=== PATIENT | female | born 1935 | race Caucasian/White ===

== ENCOUNTER 2017-01-22 06:30 | Observation (INO) | payer MEDICARE ==
[~2017-01-22] VITALS: Ht 166.4 cm; Wt 106.2 kg
[2017-01-22] VITALS (12 sets, daily range): BP systolic 133–181; BP diastolic 69–107; PULSE 84–109; RESP 18–24; TEMP 97.4–98.3; O2SAT 94–100
[~2017-01-22 06:30] MED LIST: ASPI81 PO; ENAL20TA81 PO; FISH1000 PO; FURO1TAB93 PO
[2017-01-22] MEDS ORDERED: ASPIRIN 81 MG CHEW TAB PO ONE (07:00)
[2017-01-22] MEDS ORDERED: SODIUM CHLORIDE 0.9% FLUSH 10 ML FLUSH IVF PRN (07:00)
[2017-01-22] MEDS ORDERED: MORPHINE SULFATE 4 MG/ML INJ IV PUSH ONE (07:00)
--- NOTE | 2017-01-22 07:09 | PD ---
HPI Chief Complaint: Chest Pain Time Seen by Provider: 06:52 Travel History International Travel<30 days: No Contact w/Intl Traveler<30days: No Traveled to known affect area: No History of Present Illness HPI Patient is a 81-year-old female here with complaint of chest pain. Patient states that she woke up at approximately 2 AM with complaint of left-sided inframammary chest pain that wraps around slightly to the left flank. She states that this is an achy pain, mild to moderate. She has not noticed anything that makes it better or worse. Some nausea and 2 episodes of emesis. Loose stool but no jacque diarrhea. No abdominal pain. Patient denies any associated shortness of breath. She denies a history of cardiac disease, and to her knowledge has never previously had any provocative testing. [facility] Past Medical History Arthritis: Yes Blood Disorders: No Cancer: No Cardiovascular Problems: Yes Cerebrovascular Accident: Yes (TIA) Endocrine: No GERD: Yes Genitourinary: No Hypertension: Yes Immune Disorder: No Musculoskeletal: Yes Neurologic: No Psychiatric: No Respiratory: No Past Surgical History Section: Yes Eye Surgery: Yes (CATARACT SX BOTH EYES) Gynecologic Surgery: Yes (C SECTION) Social History Alcohol Use: Yes (WINE 2 GLASSES DAILY) Tobacco Use: No Allergies-Medications (Allergen,Severity, Reaction): Coded Allergies: Tramadol (Verified Allergy, Severe, Hives, 01/22/17) Reported Meds & Prescriptions Reported Meds & Active Scripts Active Reported Fish Oil 1,000 Mg Cap 1,000 Mg PO DAILY Aspirin 81 Mg Tab 81 Mg PO DAILY Lasix (Furosemide) 40 Mg Tab 40 Mg PO DAILY Vasotec (Enalapril Maleate) 20 Mg Tab 40 Mg PO DAILY Review of Systems Except as stated in HPI: all other systems reviewed are Neg Physical Exam Narrative GENERAL: Obese elderly female in no acute distress SKIN: Focused skin assessment warm/dry. HEAD: Normocephalic. EYES: No scleral icterus. No injection or drainage. ENT: Mucous membranes pink and moist. NECK: Supple CARDIOVASCULAR: Regular rate and rhythm. No murmur appreciated. No reproducible tenderness to palpation of the chest wall RESPIRATORY: No accessory muscle use. Clear to auscultation. Breath sounds equal bilaterally. GASTROINTESTINAL: Abdomen soft, non-tender, nondistended. Obese MUSCULOSKELETAL: No obvious deformities. No edema. NEUROLOGICAL: Awake and alert. Motor grossly within normal limits. Normal speech. PSYCHIATRIC: Appropriate mood and affect; insight and judgment normal. Data Data Last Documented VS Vital Signs Date Time Temp Pulse Resp B/P Pulse Ox O2 Delivery O2 Flow Rate FiO2 01/22/17 06:58 Nasal Cannula 2.0 01/22/17 06:58 94 01/22/17 06:33 98.3 84 18 181/107 Orders Electrocardiogram (01/22/17 06:52) Ckmb (Isoenzyme) Profile (01/22/17 06:52) Complete Blood Count With Diff (01/22/17 06:52) Comprehensive Metabolic Panel (01/22/17 06:52) Magnesium (Mg) (01/22/17 06:52) Prothrombin Time / Inr (Pt) (01/22/17 06:52) Act Partial Throm Time (Ptt) (01/22/17 06:52) Troponin I (01/22/17 06:52) Lipase (01/22/17 06:52) Chest, Single Ap (01/22/17 06:52) Ecg Monitoring (01/22/17 06:52) Bilateral Bp Monitoring (01/22/17 06:52) Iv Access Insert/Monitor (01/22/17 06:52) Oximetry (01/22/17 06:52) Oxygen Administration (01/22/17 06:52) Aspirin Chew (Aspirin Chew) (01/22/17 07:00) Morphine Inj (Morphine Inj) (01/22/17 07:00) Sodium Chloride 0.9% Flush (Ns Flush) (01/22/17 07:00) MDM Medical Decision Making Medical Screen Exam Complete: Yes Emergency Medical Condition: Yes Medical Record Reviewed: Yes Differential Diagnosis 81-year-old female with history of GERD, HTN, TIA here with left-sided inframammary chest pressure 4 hours, nausea and vomiting. Differential includes GERD, gastritis, pancreatitis, hepatobiliary pathology, ACS and less likely PE or dissection Narrative Course Patient placed on monitor, IV established and blood obtained. A twelve-lead EKG shows sinus rhythm without notable ST or T-wave abnormalities and normal intervals. Patient given aspirin, morphine. X-ray of the chest, CBC, CMP, lipase, magnesium, CK-MB, troponin and coags were ordered and are pending at the time this dictation. Patient signed out to oncoming provider waiting results of same for ultimate admission for provocative testing. Cara Escobedo MD Jan 22, 2017 07:09
[2017-01-22] MEDS: NITROGLYCERIN 0.4 MG SL 25 TABS/BTL SL SCH ×3 (07:16→08:13)
--- NOTE | 2017-01-22 07:22 | RADRPT ---
EXAM DATE/TIME: 01/22/2017 06:50 [facility] COMPARISON: No previous studies available for comparison. INDICATIONS : Patient is experiencing left upper chest pain that radiates down her back. MEDICAL HISTORY : None. SURGICAL HISTORY : None. Small cyst was removed from breast 40 years ago. ENCOUNTER: Initial ACUITY: 1 day PAIN SCORE: 8/10 LOCATION: Left upper chest FINDINGS: A single view of the chest demonstrates the lungs to be symmetrically aerated without evidence of mas s, infiltrate or effusion. The cardiomediastinal contours are unremarkable. Osseous structures are intact. CONCLUSION: No acute disease. Kurt Feliz MD on January 22, 2017 at 7:20 Board Certified Radiologist. This report was verified electronically.
[2017-01-22] MEDS ORDERED: OMEP10CA PO (07:30)
[2017-01-22] MEDS ORDERED: HYDR-3516 PO (07:30)
[2017-01-22] MEDS ORDERED: TEMA30CA PO (07:30)
[2017-01-22] MEDS ORDERED: CARB1DRO19 (07:30)
[2017-01-22] MEDS ORDERED: FISH1000 (07:30)
[2017-01-22] MEDS ORDERED: SIMV20TA PO (07:30)
[2017-01-22] MEDS ORDERED: [UNRECOGNIZED DRUG - OTHER] (07:30)
[2017-01-22] MEDS ORDERED: LEVO25TA4 PO (07:30)
[2017-01-22] MEDS ORDERED: POTA8TAB PO (07:30)
[2017-01-22] MEDS ORDERED: LISI40TA PO (07:30)
[2017-01-22] MEDS ORDERED: ASPI81CH CHEW (07:30)
[2017-01-22] MEDS ORDERED: GABA100C4 PO (07:30)
[2017-01-22] MEDS ORDERED: PRESERVISION (07:33)
[2017-01-22 07:34] LABS: AUTOMATED NEUTROPHIL # 6.8 TH/MM3 (1.8-7.7); BASOPHIL % 0.3 % (0.0-2.0); EOSINOPHIL # 0.1 TH/MM3 (0-0.4); EOSINOPHIL % 0.7 % (0.0-4.0); HEMATOCRIT 41.5 % (35.0-46.0); HEMO FLAGS DIFF FINAL; LYMPH % 12.8 % (9.0-44.0); MEAN CELL VOLUME 93.1 FL (80.0-100.0); MEAN CORPUSCULAR HEMOGLOBIN 31.4 PG (27.0-34.0); MEAN CORPUSCULAR HGB CONC 33.7 % (32.0-36.0); NEUT % 83.2 % (16.0-70.0); PLATELET COUNT 189 TH/MM3 (150-450); RED BLOOD COUNT 4.45 MIL/MM3 (4.00-5.30); WHITE BLOOD COUNT 8.2 TH/MM3 (4.0-11.0)
[2017-01-22 07:42] LABS: APTT (PATIENT) 29.4 SEC (24.3-30.1); PROTHROMBIN TIME - PATIENT 10.7 SEC (9.8-11.6)
--- NOTE | 2017-01-22 07:51 | PD ---
Physical Exam Date Seen by Provider: Jan 22, 2017 Data Data Last Documented VS Vital Signs Date Time Temp Pulse Resp B/P Pulse Ox O2 Delivery O2 Flow Rate FiO2 01/22/17 09:00 86 21 133/72 100 Nasal Cannula 2 01/22/17 06:33 98.3 Orders Electrocardiogram (01/22/17 06:52) Ckmb (Isoenzyme) Profile (01/22/17 06:52) Complete Blood Count With Diff (01/22/17 06:52) Comprehensive Metabolic Panel (01/22/17 06:52) Magnesium (Mg) (01/22/17 06:52) Prothrombin Time / Inr (Pt) (01/22/17 06:52) Act Partial Throm Time (Ptt) (01/22/17 06:52) Troponin I (01/22/17 06:52) Lipase (01/22/17 06:52) Chest, Single Ap (01/22/17 06:52) Ecg Monitoring (01/22/17 06:52) Bilateral Bp Monitoring (01/22/17 06:52) Iv Access Insert/Monitor (01/22/17 06:52) Oximetry (01/22/17 06:52) Oxygen Administration (01/22/17 06:52) Aspirin Chew (Aspirin Chew) (01/22/17 07:00) Morphine Inj (Morphine Inj) (01/22/17 07:00) Sodium Chloride 0.9% Flush (Ns Flush) (01/22/17 07:00) Nitroglycerin Sl (Nitrostat Sl) (01/22/17 07:15) Ondansetron Inj (Zofran Inj) (01/22/17 08:00) CKMB (01/22/17 06:55) CKMB% (01/22/17 06:55) Cta Thor Abd Aorta W Iv C W3d (01/22/17 08:26) Iohexol 350 Inj (Omnipaque 350 Inj) (01/22/17 09:32) Admit Order (Ed Use Only) (01/22/17 10:25) Labs Laboratory Tests Test 01/22/17 06:55 White Blood Count 8.2 TH/MM3 Red Blood Count 4.45 MIL/MM3 Hemoglobin 14.0 GM/DL Hematocrit 41.5 % Mean Corpuscular Volume 93.1 FL Mean Corpuscular Hemoglobin 31.4 PG Mean Corpuscular Hemoglobin 33.7 % Concent Red Cell Distribution Width 14.0 % Platelet Count 189 TH/MM3 Mean Platelet Volume 7.4 FL Neutrophils (%) (Auto) 83.2 % Lymphocytes (%) (Auto) 12.8 % Monocytes (%) (Auto) 3.0 % Eosinophils (%) (Auto) 0.7 % Basophils (%) (Auto) 0.3 % Neutrophils # (Auto) 6.8 TH/MM3 Lymphocytes # (Auto) 1.0 TH/MM3 Monocytes # (Auto) 0.2 TH/MM3 Eosinophils # (Auto) 0.1 TH/MM3 Basophils # (Auto) 0.0 TH/MM3 CBC Comment DIFF FINAL Differential Comment Prothrombin Time 10.7 SEC Prothromb Time International 1.0 RATIO Ratio Activated Partial 29.4 SEC Thromboplast Time Sodium Level 140 MEQ/L Potassium Level 4.7 MEQ/L Chloride Level 105 MEQ/L Carbon Dioxide Level 27.7 MEQ/L Anion Gap 7 MEQ/L Blood Urea Nitrogen 15 MG/DL Creatinine 0.91 MG/DL Estimat Glomerular Filtration 59 ML/MIN Rate Random Glucose 127 MG/DL Calcium Level 9.2 MG/DL Magnesium Level 2.2 MG/DL Total Bilirubin 0.7 MG/DL Aspartate Amino Transf 47 U/L (AST/SGOT) Alanine Aminotransferase 21 U/L (ALT/SGPT) Alkaline Phosphatase 72 U/L Total Creatine Kinase 157 U/L Creatine Kinase MB 1.6 NG/ML Troponin I LESS THAN 0.02 NG/ML Total Protein 8.0 GM/DL Albumin 3.9 GM/DL Lipase 92 U/L [facility] Medical Record Reviewed: Yes Supervised Visit with DEXTER: No Interpretation(s) Vital Signs Date Time Temp Pulse Resp B/P Pulse Ox O2 Delivery O2 Flow Rate FiO2 01/22/17 07:29 164/83 01/22/17 07:29 24 01/22/17 07:11 87 24 155/81 95 Room Air 152/71 01/22/17 06:58 Nasal Cannula 2.0 01/22/17 06:58 94 Room Air 01/22/17 06:33 98.3 84 18 181/107 95 Room Air Differential Diagnosis Differential includes ACS, arrhythmia, aortic dissection, gastritis, gastroenteritis, PE Narrative Course Patient was signed out to me by Dr. Dunne at change of shift. Patient is an 81-year-old female who presents to emergency room with complaints of chest pain. Patient reports that she woke up around 2 AM with left sided chest pain which radiates to her left flank. Reports that pain feels like a "pressure to her chest", reports that she felt nauseous and felt as if she had acid reflux with her symptoms. Patient did endorse that she did have episode of nausea 2. Patient at this time feels mild pressure to her chest, reports history of hyperlipidemia, hypertension, no history of coronary artery disease. Patient was placed on a cardiac rehabilitation program director upon arrival to emergency room. Patient was given aspirin, labs including cardiac enzymes, EKG obtained. X-ray chest ordered. Nitroglycerin to see if this helps with her chest pain symptoms Laboratory Tests Test 01/22/17 06:55 White Blood Count 8.2 TH/MM3 (4.0-11.0) Red Blood Count 4.45 MIL/MM3 (4.00-5.30) Hemoglobin 14.0 GM/DL (11.6-15.3) Hematocrit 41.5 % (35.0-46.0) Mean Corpuscular Volume 93.1 FL (80.0-100.0) Mean Corpuscular Hemoglobin 31.4 PG (27.0-34.0) Mean Corpuscular Hemoglobin 33.7 % Concent (32.0-36.0) Red Cell Distribution Width 14.0 % (11.6-17.2) Platelet Count 189 TH/MM3 (150-450) Mean Platelet Volume 7.4 FL (7.0-11.0) Neutrophils (%) (Auto) 83.2 % (16.0-70.0) Lymphocytes (%) (Auto) 12.8 % (9.0-44.0) Monocytes (%) (Auto) 3.0 % (0.0-8.0) Eosinophils (%) (Auto) 0.7 % (0.0-4.0) Basophils (%) (Auto) 0.3 % (0.0-2.0) Neutrophils # (Auto) 6.8 TH/MM3 (1.8-7.7) Lymphocytes # (Auto) 1.0 TH/MM3 (1.0-4.8) Monocytes # (Auto) 0.2 TH/MM3 (0-0.9) Eosinophils # (Auto) 0.1 TH/MM3 (0-0.4) Basophils # (Auto) 0.0 TH/MM3 (0-0.2) CBC Comment DIFF FINAL Differential Comment Prothrombin Time 10.7 SEC (9.8-11.6) Prothromb Time International 1.0 RATIO Ratio Activated Partial 29.4 SEC Thromboplast Time (24.3-30.1) Sodium Level 140 MEQ/L (136-145) Potassium Level 4.7 MEQ/L (3.5-5.1) Chloride Level 105 MEQ/L (98-107) Carbon Dioxide Level 27.7 MEQ/L (21.0-32.0) Anion Gap 7 MEQ/L (5-15) Blood Urea Nitrogen 15 MG/DL (7-18) Creatinine 0.91 MG/DL (0.50-1.00) Estimat Glomerular Filtration 59 ML/MIN (>89) Rate Random Glucose 127 MG/DL (74-106) Calcium Level 9.2 MG/DL (8.5-10.1) Magnesium Level 2.2 MG/DL (1.5-2.5) Total Bilirubin 0.7 MG/DL (0.2-1.0) Aspartate Amino Transf 47 U/L (15-37) (AST/SGOT) Alanine Aminotransferase 21 U/L (10-53) (ALT/SGPT) Alkaline Phosphatase 72 U/L (45-117) Total Creatine Kinase 157 U/L (26-192) Creatine Kinase MB 1.6 NG/ML (0.5-3.6) Troponin I LESS THAN 0.02 NG/ML (0.02-0.05) Total Protein 8.0 GM/DL (6.4-8.2) Albumin 3.9 GM/DL (3.4-5.0) Lipase 92 U/L (73-393) Last Impressions Aorta CTA 01/22/17 3522 Signed Impressions: Service Date/Time: Sunday, January 22, 2017 09:25 - CONCLUSION: 1. Unremarkable thoracic and abdominal aorta without evidence of aneurysmal enlargement, intimal dissection or ulcerated atherosclerotic plaque. 2. 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 3. Bilateral patchy airspace disease 4. Cholelithiasis 5. No evidence of acute process in the abdomen or pelvis. Kurt Feliz MD Chest X-Ray 01/22/17 2721 Signed Impressions: Service Date/Time: Sunday, January 22, 2017 06:50 - CONCLUSION: No acute disease. Kurt Feliz MD Patient with relief of symptoms after 3 sublingual nitros. Plan to observe in the chest pain unit Diagnosis Primary Impression: Chest pain Admitting Information Admitting Physician Requests: Observation Nayana Aparicio DO Jan 22, 2017 07:51
[2017-01-22] MEDS ORDERED: ONDANSETRON HCL 4 MG/2 ML VIAL IV PUSH ONE (08:00)
[2017-01-22 08:05] LABS: ALT (GPT) 21 U/L (10-53)
[2017-01-22 08:20] LABS: ALKALINE PHOSPHATASE 72 U/L (45-117); ANION GAP 7 MEQ/L (5-15); AST (GOT) 47 U/L (15-37); BICARBONATE 27.7 MEQ/L (21.0-32.0); BLOOD UREA NITROGEN 15 MG/DL (7-18); CHLORIDE 105 MEQ/L (98-107); CREATINE KINASE 157 U/L (26-192); GLOMERULAR FILTRATION RATE 59 ML/MIN (>89); MAGNESIUM 2.2 MG/DL (1.5-2.5); POTASSIUM 4.7 MEQ/L (3.5-5.1); SODIUM (NA) 140 MEQ/L (136-145); TOTAL BILIRUBIN ADULT 0.7 MG/DL (0.2-1.0)
[2017-01-22 08:34] LABS: CKMB 1.6 NG/ML (0.5-3.6)
[2017-01-22] MEDS ORDERED: IOHEXOL 350 MG/ML 10 ML VIAL (for RAD DIAG) IV ONE (09:32)
--- NOTE | 2017-01-22 10:21 | RADRPT ---
EXAM DATE/TIME: 01/22/2017 09:25 [facility] COMPARISON: No previous studies available for comparison. INDICATIONS : Chest and back pain. IV CONTRAST: 97 cc Omnipaque 350 (iohexol) IV RADIATION DOSE: 17.07 CTDIvol (mGy) MEDICAL HISTORY : Cardiovascular disease. Hypertension. SURGICAL HISTORY : None. ENCOUNTER: Initial ACUITY: 1 day PAIN SCALE: 5/10 LOCATION: Bilateral back TECHNIQUE: Volumetric scanning was performed using a multi-row detector CT scanner. The data was post processed with a variety of visualization algorithms including full volume maximum intensity projection, multi -planar sliding thin slab reformation, curved planar reformation, and surface rendering techniques. Using automated exposure control and adjustment of the mA and/or kV according to patient size, radiat ion dose was kept as low as reasonably achievable to obtain optimal diagnostic quality images. DICOM format image data is available electronically for review and comparison. FINDINGS: LUNGS: Patchy airspace disease is seen in both lungs. There is no pneumothorax. No concerning pulmonary nod ule is visualized. No pleural fluid is present. MEDIASTINUM: No abnormally enlarged lymph nodes by CT criteria. No axillary or hilar abnormalities are identified. ABDOMEN: The liver and spleen are free of focal defects. Calcified stones are noted in the gallbladder. The pa ncreas demonstrates no abnormality. The adrenal glands are normal. The kidneys demonstrate no evidenc e of solid renal mass or hydronephrosis. No free fluid or abdominal masses are identified. No para-ao rtic adenopathy is seen. PELVIS: No evidence of free fluid or pelvic mass. No abnormally enlarged inguinal or retroperitoneal lymph no osmin are present. The bladder is unremarkable. THORACIC AORTA: The thoracic aortic root is normal with normal branching of the great vessels. There is no evidence of aneurysm or dissection. ABDOMINAL AORTA: The aorta is normal in caliber without aneurysm or dissection. The renal arteries are patent bilater ally. The proximal celiac and superior mesenteric arteries are patent and normal in diameter. A calc ified splenic artery aneurysm measuring 2.2 x 1.8 cm in size is noted. PELVIC VESSELS: The internal iliac and external iliac vessels are patent without aneurysm or stenosis. CONCLUSION: 1. Unremarkable thoracic and abdominal aorta without evidence of aneurysmal enlargement, intimal diss ection or ulcerated atherosclerotic plaque. 2. 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 3. Bilateral patchy airspace disease 4. Cholelithiasis 5. No evidence of acute process in the abdomen or pelvis. Kurt Feliz MD on January 22, 2017 at 10:13 Board Certified Radiologist. This report was verified electronically.
[2017-01-22] MEDS ORDERED: FAMOTIDINE 20 MG/2 ML VIAL IV PUSH ONE (10:30)
[2017-01-22] MEDS ORDERED: ONDANSETRON HCL 4 MG/2 ML VIAL IV PRN (11:45)
[2017-01-22] MEDS ORDERED: NITROGLYCERIN 0.4 MG SL 25 TABS/BTL SL PRN (11:45)
[2017-01-22] MEDS ORDERED: ACETAMINOPHEN 500 MG CPLT PO PRN (11:45)
--- NOTE | 2017-01-22 12:43 | EKG ---
Date Performed: 01/22/2017 Time Performed: 06:41:36 PTAGE: 81 years EKG: Sinus rhythm WITH OCCASIONAL SUPRAVENTRICULAR PREMATURE COMPLEXES Compared to prior tracing no significant change BORDERLINE ECG PREVIOUS TRACING : 08/16/2008 08.57 DOCTOR: John Hudson Interpretating Date/Time 01/22/2017 12:40:52
--- NOTE | 2017-01-22 12:54 | HHI.HP ---
[facility] Primary Care Physician Juanpablo Bolanos MD Chief Complaint Chest pain, nausea, vomiting History of Present Illness 81-year-old female with history of hypertension, GERD, arthritis presents to emergency room for further evaluation of chest pain, nausea, and vomiting. Reports all last evening she didn't feel well and was nauseated she proceeded to go to sleep. At 2 AM she woke feeling extremely nauseated and felt that if she vomited she would feel much better. She eventually vomited 3 undigested food, denying any blood. Also have 56 loose stools, not watery with no blood and not dark in color. During this time she also had left inframammary chest pain radiating to her back. Pain described as severe soreness. Associated symptoms included dizziness. Duration constant,stating "I'm starting to feel much better." Denied shortness of breath or diaphoresis. Reports similar episodes including chest pain in the past she relates episodes to be GERD related. States generally when episodes occur after vomiting she quickly feels better. This episode she continued to have chest pain for hours after vomiting therefore came to the ER for further evaluation. No known precipitating factors. No known relieving factors for chest pain, relieving factors for nausea with medication provided the ER. Currently denies nausea. Current chest discomfort mild described as "sore." Review of Systems General: No fatigue,weakness, fever, chills, or recent illness. Reports has been her general state of health. States she is basically healthy other than arthritis and being overweight. HEENT: Current headache after receiving nitroglycerin. Denying any chronic headaches or migraines. 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 She no longer can read a book due to vision changes and is quite upset regarding this. Occasional dysphasia for years related to taking pills. Takes her pills with applesauce. CV: As stated above. No palpitations, intermittent leg pain, or dizziness. RESP: No SOB, cough, wheeze, or recent URI. States she rarely gets any upper respiratory infection. No history of asthma. GI: Nausea improving. Loose stools have subsided. Reported intermittent left lower quadrant discomfort during episode as described above. No current abdominal pain, or distention. Follows with a GI specialist. Last colonoscopy 3 years ago-small polyps found. No unintentional weight gain or weight loss : No dysuria, urgency, or frequency EXT: Bilateral neuropathy beginning and ankles to bottoms of feet. Chronic lower leg edema takes Lasix daily as prescribed. MS: No discomfort or change in ROM. Difficulty with balance related to severe neuropathy. Uses either a cane or walker for ambulation. Endorses 4 falls in the last year. Lives with her son. NEURO: No change in memory or LOC. 30 years ago had a TIA reported to her by her physician after a CT scan completed. PSYCH: Current depression and situational stress. Situational stress around family and financial issues. 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 No anxiety or suicidal ideation SKIN: No rashes, no concerning lesions Past Family Social History Allergies: Coded Allergies: Tramadol (Verified Allergy, Severe, Hives, 01/22/17) Past Medical History Arthritis, neuropathy, GERD, hypertension, macular degeneration left eye, hyperlipidemia Past Surgical History Bilateral cataract, right knee replacement, left hammertoe repair Reported Medications Active Reported [Preservision ] Lubricant Eye Drops (Carboxymethylcellulose Sodium) 1 Each Droperette Fish Oil ([place]-3 Fatty Acids) 1,000 Mg Cap [Sheila Craves ] Aspirin 81 Mg Chew 81 Mg CHEW DAILY Hydrocodone-Acetaminophen 5-325 mg Tab 1 Tab PO Q4H PRN Levothyroxine (Levothyroxine Sodium) 25 Mcg Tab 25 Mcg PO DAILY Omeprazole 10 Mg Cap 10 Mg PO DAILY Temazepam 30 Mg Cap 30 Mg PO HS PRN Simvastatin 20 Mg Tab 20 Mg PO DAILY Potassium Chloride ER (Potassium Chloride) 8 Meq Tab 8 Meq PO DAILY Lisinopril 40 Mg Tab 40 Mg PO DAILY Gabapentin 100 Mg Cap 100 Mg PO TID Active Ordered Medications Current Medications Medications (Trade) Dose Ordered Sig/Parris Route Start Time Stop Time Status Last Admin (NS Flush) 2 ml UNSCH PRN IVF 01/22/17 07:00 01/22/17 08:14 (NS Flush) 2 ml BID IV FLUSH 01/22/17 21:00 (Tylenol) 500 mg Q4H PRN PO 01/22/17 11:45 (Zofran Inj) 4 mg Q6H PRN IV 01/22/17 11:45 (Nitrostat Sl) 0.4 mg Q5M PRN SL 01/22/17 11:45 (Aspirin) 325 mg DAILY PO 01/23/17 09:00 Family History Noncontributory for early onset cardiovascular disease. Social History Known hypertension and hyperlipidemia. No known diabetes or personal coronary artery disease. Quit smoking at age 29. Endorses one glass of wine or one bottle of beer nightly. Denies any recreational drug use. Performs water aerobics 3 times weekly. Past cardiac testing No recent cardiac testing. 20 years ago had exercise stress test and Holter monitor, both unremarkable. Cannot remember why testing was completed at that time. Physical Exam Vital Signs Vital Signs Date Time Temp Pulse Resp B/P Pulse Ox O2 Delivery O2 Flow Rate FiO2 01/22/17 09:00 86 21 133/72 100 Nasal Cannula 2 01/22/17 08:50 94 20 133/69 97 Nasal Cannula 2 01/22/17 08:10 104 20 145/79 97 Nasal Cannula 2 01/22/17 08:05 24 01/22/17 07:50 101 18 145/79 96 Nasal Cannula 2 01/22/17 07:40 109 18 151/77 97 Nasal Cannula 2 01/22/17 07:30 107 20 156/82 97 Nasal Cannula 2 01/22/17 07:29 164/83 01/22/17 07:11 87 24 155/81 95 Room Air 152/71 01/22/17 06:58 Nasal Cannula 2.0 01/22/17 06:58 94 Room Air 01/22/17 06:33 98.3 84 18 181/107 95 Room Air Physical Exam GENERAL: Alert WN, WD, NAD, pleasant, obese female HEAD: NC, AT EYES: Sclera clear, conjunctiva without injection, pupils equal and round ENT: Mucous membranes pink and moist CV: RRR, without murmur, rub, gallop, no JVD, S1-S2 no S3-S4. No carotid bruits. RESP: Clear lungs throughout bilateral, no crackles, wheeze, rhonchi, symmetrical chest rise, nonlabored, able to speak in full sentences ABD: Soft, NT, ND, no masses, positive bowel tones, obese BACK: No scoliosis EXT: Pulses +24, +1 pitting dependent edema bilateral knees to ankles. MS: Normal tone 4 extremities, nontender, no obvious deformities, full range of motion, left inframammary pain reproducible with palpation NEURO: CN II through CN XII grossly intact, motor strength 5/5, gait WNL PSYCH: A+O 3, pleasant affect, appropriate speech, appropriate mood and affect , insight and judgment SKIN: Normal turgor, normal texture, no lesions, no rashes, brisk cap refill Laboratory Laboratory Tests Test 01/22/17 06:55 White Blood Count 8.2 Red Blood Count 4.45 Hemoglobin 14.0 Hematocrit 41.5 Mean Corpuscular Volume 93.1 Mean Corpuscular Hemoglobin 31.4 Mean Corpuscular Hemoglobin 33.7 Concent Red Cell Distribution Width 14.0 Platelet Count 189 Mean Platelet Volume 7.4 Neutrophils (%) (Auto) 83.2 Lymphocytes (%) (Auto) 12.8 Monocytes (%) (Auto) 3.0 Eosinophils (%) (Auto) 0.7 Basophils (%) (Auto) 0.3 Neutrophils # (Auto) 6.8 Lymphocytes # (Auto) 1.0 Monocytes # (Auto) 0.2 Eosinophils # (Auto) 0.1 Basophils # (Auto) 0.0 CBC Comment DIFF FINAL Differential Comment Prothrombin Time 10.7 Prothromb Time International 1.0 Ratio Activated Partial 29.4 Thromboplast Time Sodium Level 140 Potassium Level 4.7 Chloride Level 105 Carbon Dioxide Level 27.7 Anion Gap 7 Blood Urea Nitrogen 15 Creatinine 0.91 Estimat Glomerular Filtration 59 Rate Random Glucose 127 Calcium Level 9.2 Magnesium Level 2.2 Total Bilirubin 0.7 Aspartate Amino Transf 47 (AST/SGOT) Alanine Aminotransferase 21 (ALT/SGPT) Alkaline Phosphatase 72 Total Creatine Kinase 157 Creatine Kinase MB 1.6 Troponin I LESS THAN 0.02 Total Protein 8.0 Albumin 3.9 Lipase 92 Result Diagram: 01/22/1765401/22/17654 Imaging Last Impressions Aorta CTA 01/22/17 0826 Signed Impressions: Service Date/Time: Sunday, January 22, 2017 09:25 - CONCLUSION: 1. Unremarkable thoracic and abdominal aorta without evidence of aneurysmal enlargement, intimal dissection or ulcerated atherosclerotic plaque. 2. 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 3. Bilateral patchy airspace disease 4. Cholelithiasis 5. No evidence of acute process in the abdomen or pelvis. Kurt Feliz MD Chest X-Ray 01/22/17 0652 Signed Impressions: Service Date/Time: Sunday, January 22, 2017 06:50 - CONCLUSION: No acute disease. Kurt Feliz MD Course EKG Normal sinus rhythm, no ST or T-segment changes Assessment and Plan Assessment and Plan #1 Atypical chest painadmitted to chest pain center. Complete serial EKGs and cardiac enzymes. Seen and evaluated by Dr. Leonard Monroy. No further cardiac testing required, atypical chest pain related to GI. #2 Hypertensioncontinue lisinopril #3 Neuropathycontinue gabapentin #4 Hyperlipidemiacontinue simvastatin #5 GERD-continue omeprazole, follow up with GI specialists. #6 Gastritis-follow up with PCP, notified her gallbladder stones noted in CT Aorta results. Episode may have been related, discuss with PCP for possible further testing if pain returns. All symptoms have improved, plans for discharge this afternoon. Yodit Szymanski Jan 22, 2017 12:54 Yodit Szymanski Jan 22, 2017 12:54
[2017-01-22 13:09] LABS: CREATINE KINASE 80 U/L (26-192)
[2017-01-22] MEDS ORDERED: PANTOPRAZOLE SOD 40 MG DELAYED RELEASE TAB PO ONE (13:30)
[2017-01-22] MEDS ORDERED: LISINOPRIL 20 MG TAB PO SCH (13:30)
[2017-01-22 15:32] LABS: CREATINE KINASE 80 U/L (26-192)
--- NOTE | 2017-01-22 15:33 | HHI.DCPOC ---
Discharge Care Plan Diagnosis: (1) Atypical chest pain (2) GERD (gastroesophageal reflux disease) (3) Cholelithiasis Goals to Promote Your Health * To prevent worsening of your condition and complications * To maintain your health at the optimal level Directions to Meet Your Goals Take your medications as prescribed Follow your dietary instruction Follow activity as directed Keep your appointments as scheduled Take your immunizations and boosters as scheduled If your symptoms worsen call your PCP, if no PCP go to Urgent Care Center or Emergency Room Smoking is Dangerous to Your Health. Avoid second hand smoke Call the 24-hour hour crisis hotline for domestic abuse at Yodit Szymanski Jan 22, 2017 15:33
--- NOTE | 2017-01-22 15:36 | PD.CARD.PN ---
Subjective Subjective Remarks CARDIOLOGY ATTENDING NOTE PT SEEN EXAMINED AND DISCUSSED WITH PSYCHIATRIC AIDE. AGREE WITH HER A&P HPI: 81 YO OBESE BRIGHT LADY AWOKE 2 AM REPORTED. PAIN WAS PREDOMINATELY IN UPPER ABDOMEN BUT RADIATED TO LOW CHEST AND L BACK BELOW SHOULDER BLADE. THE PAIN FELT LIKE SOMETHING WAS STUCK SO SHE TRIED TO VOMIT. NO NAUSEA AT THAT TIME. SUBSEQUENTLY SHE DID VOMIT AND HAD A BM. THE PAIN CONTINUED THROUGH THE NIGHT AND THIS MORNING SHE ASKED HER SON TO BRING HER TO ED BECAUSE SHE WAS FEARFUL IT COULD BE HER HEART. SHE HAS KNOWN GERD AND FOLLOWED BY DR. CALDERA. O: GEN VERY OBESE BUT ALERT HEENT JENNIFER EOMI WITH IOL R/L SOME LOSS OF HEARING AND EDENTULOUS NECK THYROID NODULE BY HX BUT I CAN'T PALPATE NO JVD, M, N OR BRUITS CHEST CLEAR TO AP CV SRS BUT WITH OCCASIONAL PREMATURE BEAT. NO GRM ABD MASSIVELY OBESE, TENDER DIFFUSELY BUT MORE SO IN THE RUQ. GUARDING WITH DEEP INSPIRATION RUQ EXT 2+EDEMA, STASIS AND NEUROPATHY EKG NO SIG CHANGES LAB AST ELEVATED TROPONIN NEG CXR NEG ABD GALLSTONES, CALCIFIED VESSELS A: PROBABLE EPISODE OF CHOLECYSTITIS ALTHOUGH VIRAL GASTROENTERITIS ALSO POSSIBLE CP HAS RO FOR ACS AND CURRENT EPISODE DOES NOT APPEAR TO BE CARDIAC P. DISCH TO HOME WITH FU DR CALDERA TO EVALUATE GB Objective Vital Signs / I&O Vital Signs Date Time Temp Pulse Resp B/P Pulse Ox O2 Delivery O2 Flow Rate FiO2 01/22/17 13:40 97.4 98 18 137/79 99 01/22/17 12:30 99 20 135/78 100 Nasal Cannula 2 01/22/17 09:00 86 21 133/72 100 Nasal Cannula 2 01/22/17 08:50 94 20 133/69 97 Nasal Cannula 2 01/22/17 08:10 104 20 145/79 97 Nasal Cannula 2 01/22/17 08:05 24 01/22/17 07:50 101 18 145/79 96 Nasal Cannula 2 01/22/17 07:40 109 18 151/77 97 Nasal Cannula 2 01/22/17 07:30 107 20 156/82 97 Nasal Cannula 2 01/22/17 07:29 164/83 01/22/17 07:11 87 24 155/81 95 Room Air 152/71 01/22/17 06:58 Nasal Cannula 2.0 01/22/17 06:58 94 Room Air 7/15/17 06:33 98.3 84 18 181/107 95 Room Air Laboratory Laboratory Tests Test 01/22/17 01/22/17 06:55 12:20 White Blood Count 8.2 TH/MM3 Red Blood Count 4.45 MIL/MM3 Hemoglobin 14.0 GM/DL Hematocrit 41.5 % Mean Corpuscular Volume 93.1 FL Mean Corpuscular Hemoglobin 31.4 PG Mean Corpuscular Hemoglobin 33.7 % Concent Red Cell Distribution Width 14.0 % Platelet Count 189 TH/MM3 Mean Platelet Volume 7.4 FL Neutrophils (%) (Auto) 83.2 % Lymphocytes (%) (Auto) 12.8 % Monocytes (%) (Auto) 3.0 % Eosinophils (%) (Auto) 0.7 % Basophils (%) (Auto) 0.3 % Neutrophils # (Auto) 6.8 TH/MM3 Lymphocytes # (Auto) 1.0 TH/MM3 Monocytes # (Auto) 0.2 TH/MM3 Eosinophils # (Auto) 0.1 TH/MM3 Basophils # (Auto) 0.0 TH/MM3 CBC Comment DIFF FINAL Differential Comment Prothrombin Time 10.7 SEC Prothromb Time International 1.0 RATIO Ratio Activated Partial 29.4 SEC Thromboplast Time Sodium Level 140 MEQ/L Potassium Level 4.7 MEQ/L Chloride Level 105 MEQ/L Carbon Dioxide Level 27.7 MEQ/L Anion Gap 7 MEQ/L Blood Urea Nitrogen 15 MG/DL Creatinine 0.91 MG/DL Estimat Glomerular Filtration 59 ML/MIN Rate Random Glucose 127 MG/DL Calcium Level 9.2 MG/DL Magnesium Level 2.2 MG/DL Total Bilirubin 0.7 MG/DL Aspartate Amino Transf 47 U/L (AST/SGOT) Alanine Aminotransferase 21 U/L (ALT/SGPT) Alkaline Phosphatase 72 U/L Total Creatine Kinase 157 U/L 80 U/L Creatine Kinase MB 1.6 NG/ML Troponin I LESS THAN 0.02 LESS THAN 0.02 NG/ML NG/ML Total Protein 8.0 GM/DL Albumin 3.9 GM/DL Lipase 92 U/L Leonard Monroy MD Jan 22, 2017 15:36
[2017-01-22] MEDS ORDERED: GABAPENTIN 100 MG CAP PO SCH (18:00)
[2017-01-22] MEDS ORDERED: SODIUM CHLORIDE 0.9% FLUSH 10 ML FLUSH IV FLUSH SCH (21:00)
[2017-01-23] MEDS ORDERED: LEVOTHYROXINE SODIUM 25 MCG TAB PO SCH (09:00)
[2017-01-23] MEDS ORDERED: ASPIRIN 325 MG TAB PO SCH (09:00)
--- NOTE | 2017-01-23 09:25 | EKG ---
Date Performed: 01/22/2017 Time Performed: 11:56:19 PTAGE: 81 years EKG: Sinus rhythm NORMAL ECG NO SIG CHANGE PREVIOUS TRACING : 01/22/2017 06.41 DOCTOR: Leonard Monroy Interpretating Date/Time 01/23/2017 09:24:40
--- NOTE | 2017-01-23 09:25 | EKG ---
Date Performed: 01/22/2017 Time Performed: 14:54:13 PTAGE: 81 years EKG: Sinus rhythm INFERIOR MYOCARDIAL INFARCTION ABNORMAL ECG NO SIG CHANGE PREVIOUS TRACING : 01/22/2017 11.56 DOCTOR: Leonard Monroy Interpretating Date/Time 01/23/2017 09:24:09
== END 2017-01-22 16:36 | disposition home or self-care (01) ==
LOC: NEPE 06:30 → NEDA 10:26 → NEPFCDU 13:19
PROVIDERS: ADMIT Internal Medicine Interventional Cardiology; ATTEND Internal Medicine Interventional Cardiology
DX: R07.89 Other chest pain (principal); M54.9 Dorsalgia, unspecified; R94.31 Abnormal electrocardiogram [ECG] [EKG]; I72.8 Aneurysm of other specified arteries; R60.0 Localized edema; R13.10 Dysphagia, unspecified; F43.9 Reaction to severe stress, unspecified; F32.9 Major depressive disorder, single episode, unspecified; I10 Essential (primary) hypertension; G62.9 Polyneuropathy, unspecified; E78.5 Hyperlipidemia, unspecified; K21.9 Gastro-esophageal reflux disease without esophagitis; K29.70 Gastritis, unspecified, without bleeding; K80.20 Calculus of gallbladder without cholecystitis without obstruction; H35.30 Unspecified macular degeneration; M19.90 Unspecified osteoarthritis, unspecified site; H91.90 Unspecified hearing loss, unspecified ear; E66.9 Obesity, unspecified; Z86.73 Personal history of transient ischemic attack (TIA), and cerebral infarction without residual deficits; Z79.899 Other long term (current) drug therapy; Z79.82 Long term (current) use of aspirin
CPT/HCPCS: 71010; 71275; 74174; 80053; 82550; 82552; 83690; 83735; 84484; 85025; 85610; 85730; 93005; 96374; 99285; G0378; J2405; Q9967

== ENCOUNTER 2017-03-08 07:53 | Observation (INO) | payer MEDICARE ==
[~2017-03-08] VITALS: Ht 166.4 cm; Wt 107.4 kg
[~2017-03-08 07:53] MED LIST changes: -ASPI81 PO; +ASPI81CH CHEW; +CARB1DRO19 EACH EYE; -ENAL20TA81 PO; -FISH1000 PO; -FURO1TAB93 PO; +LEVO25TA4 PO; +LISI40TA PO; +OMEP10CA PO; +POTA8TAB PO; +PRESERVISION; +SIMV20TA PO; +TEMA30CA PO; +[UNRECOGNIZED DRUG - OTHER]
[2017-03-08] MEDS ORDERED: LACTATED RINGER'S 1000 ML IV PRN (08:15)
[2017-03-08] MEDS ORDERED: POVIDONE IODINE 5% (ANTISEPSIS KIT) 4 APPLICATIONS EACH NARE PRN (08:15)
[2017-03-08] MEDS ORDERED: SODIUM CHLORID 0.9% 500 ML IV PRN (08:15)
[2017-03-08] MEDS ORDERED: CHLORHEXIDINE GLUCONATE 2 % 1 PACK (2 CLOTHS) TOPICAL PRN (08:15)
[2017-03-08] MEDS ORDERED: METOPROLOL TARTRATE 25 MG TAB PO PRN (08:15)
[2017-03-08] MEDS ORDERED: INSULIN HUMAN REGULAR 1,000 UNITS/10 ML VIAL SQ PRN (08:15)
[2017-03-08] MEDS ORDERED: metroNIDAZOLE 500 MG INJ 100 ML IV SCH (08:30)
[2017-03-08] MEDS ORDERED: ceFAZolin 2 GM PREMIX 50 ML IV SCH (08:30)
[2017-03-08] MEDS ORDERED: ACETAMINOPHEN 1000 MG/100 ML VIAL IV SCH (08:30)
[2017-03-08] MEDS ORDERED: MULTTAB67 PO (08:38)
[2017-03-08] MEDS ORDERED: OMEGCAP PO (08:38)
[2017-03-08] MEDS ORDERED: PRESCAP6 PO (08:38)
[2017-03-08] MEDS ORDERED: FURO20TA PO (08:41)
[2017-03-08] MEDS ORDERED: BUPIVACAINE/EPINEPHRINE 0.5% PF 10 ML VIAL INFIL ONE (13:06)
[2017-03-08] MEDS ORDERED: ONDANSETRON HCL 4 MG/2 ML VIAL IV PUSH ONE (13:14)
[2017-03-08] MEDS ORDERED: KETOROLAC TROMETHAMINE 60 MG/2 ML (IM) VIAL IM ONE (13:14)
[2017-03-08] MEDS ORDERED: PHENYLEPH/NS 1000 MCG/10 ML SYR IV ONE (13:14)
[2017-03-08] MEDS ORDERED: NEOSTIGMINE 3 MG/3 ML SYR IV ONE (13:14)
[2017-03-08] MEDS ORDERED: PROPOFOL 200 MG/20 ML AMP IV ONE (13:14)
[2017-03-08] MEDS ORDERED: LACTATED RINGER'S 1000 ML INJ 1,000 ML IV ONE (13:14)
[2017-03-08] MEDS ORDERED: IOHEXOL 350 MG/ML 50 ML BTL (for RAD DIAG) ONE (13:19)
[2017-03-08] MEDS ORDERED: ONDANSETRON HCL 4 MG/2 ML VIAL IV PRN (13:30)
[2017-03-08] MEDS ORDERED: diphenhydrAMINE HCL 25 MG CAP PO PRN (13:30)
[2017-03-08] MEDS ORDERED: MORPHINE SULFATE 4 MG/ML INJ IV PRN (13:30)
[2017-03-08] MEDS ORDERED: Post-op Orders (for Pharmacy) MISC XX ONE (13:30)
[2017-03-08] MEDS ORDERED: NALOXONE HCL 0.4 MG/ML AMP IV PRN (13:30)
[2017-03-08] MEDS ORDERED: SODIUM CHLORIDE 0.9% FLUSH 10 ML FLUSH IV FLUSH PRN (13:30)
[2017-03-08] MEDS ORDERED: DO NOT ADM ANY ANTICOAGULANT DRUGS PRN (13:33)
--- NOTE | 2017-03-08 13:33 | PD.OP ---
cc: Edwin Belcher MD Operative Report Date of Surgery: Mar 08, 2017 Preoperative Diagnosis: (1) Cholelithiasis Postoperative Diagnosis: (1) Chronic cholecystitis (2) Cholelithiasis Procedure: Laparoscopic cholecystectomy Anesthesia: GETA Surgeon: Edwin Belcher Workforce Specialist(s): Sigrid Operation and Findings: Complications: None apparent EBL: 50 cc Operative findings: The gallbladder was small and intrahepatic. There was significant chronic scarring. The common bile duct was pulled up into the infundibulum. The right hepatic artery was also visible. The gallbladder had been entered posteriorly and after further evaluation this was evident to be just superior to the cystic duct. Attempted to get a cholangiogram catheter through the cystic duct opening into the common duct but was unsuccessful. I was able to clearly see the common bile duct and placed the Endoloop and infundibulum of gallbladder superior to the common duct. Procedure in detail: The patient was taken to the operating room and placed in the supine position. General endotracheal anesthesia was induced. The abdomen was prepped and draped in usual sterile fashion and a surgical timeout was performed to verify correct patient procedure and site. Appropriate perioperative antibiotics were administered. Local anesthetic was injected in the skin and subcutaneous tissue superior to the umbilicus and a 5 mm incision performed. The abdomen was entered using the Optiview 5 mm trocar with direct laparoscopic visualization. The abdomen was then insufflated to 15 mmHg with CO2 gas which the patient tolerated well. Next a 12 mm port was placed in the epigastrium and two 5 mm ports in the right upper quadrant and right lateral abdomen. The patient was placed in reverse Trendelenburg position and turned slightly to the left. Attention was turned to the right upper quadrant and the dome of the gallbladder was grasped and retracted cephalad. The infundibulum was retracted laterally to attempt to expose Calot's triangle. Blunt dissection and judicious use of electrocautery was used to dissect the infundibulum of the gallbladder. The anatomy was not very clear and I carefully dissected the area on at the infundibulum and with judicious use of electrocautery and suction math and science instructor and the [place] dissector. It became evident that the common bile duct was in view as well as the right hepatic artery. The common duct had been pulled up into the gallbladder which was fairly small and intrahepatic and with a lot of chronic scarring. The dissection was quite difficult. I noted that the posterior aspect of the gallbladder had been entered and this was one half to 1 cm above the cystic duct. The cystic duct opening was evident on the inside of the gallbladder. There was a fair amount of gallstones which spilled. I attempted to get a cholangiogram catheter into the cystic duct opening but was unable to pass in the common duct. Therefore I placed #1 PDS Endoloop superior to the curve of the common bile duct and just proximal to the opening in the gallbladder. Hemostasis was achieved. The gallbladder was then removed from the abdomen using an Endo Catch bag. There was no evidence of any bile leak after copious suction irrigation of the right upper quadrant. Gallbladder stones were removed using the large specimen. However, I did opt to leave a 7 flat drain through the right lateral port. At this point, the abdomen was allowed to desufflate and trochars were removed. The fascia at the 12 mm port site was closed with 0 Vicryl suture. Skin was closed with subcuticular 4-0 Monocryl as well as Dermabond. The patient tolerated the procedure well and was extubated and taken to PACU in stable condition. All sponge and instrument counts were correct. Edwin Belcher MD Mar 08, 2017 13:33
[2017-03-08] MEDS ORDERED: TEMAZEPAM 15 MG CAP PO PRN (13:45)
[2017-03-08] MEDS: LACTATED RINGER'S 1000 ML INJ 1,000 ML IV SCH ×2 (14:15→22:34)
[2017-03-08] MEDS ORDERED: *morphine SULFATE 8 MG/ML PERIprocedure ONLY ONE (15:43)
[2017-03-08] MEDS ORDERED: *ONDANSETRON 4 MG VIAL PERIprocedural Use ONLY ONE (15:43)
[2017-03-08 20:00] VITALS: BP 131/70; PULSE 90; RESP 18; TEMP 99; O2SAT 96
[2017-03-08] MEDS: SODIUM CHLORIDE 0.9% FLUSH 10 ML FLUSH IV FLUSH SCH (20:23)
[2017-03-08] MEDS: ACETAMINOPHEN/HYDROcodone 325 MG/5 MG TAB PO PRN (22:34)
[2017-03-09] VITALS: BP 104/55; PULSE 94; RESP 18; TEMP 98.5; O2SAT 95
[2017-03-09 04:00] VITALS: BP 96/58; PULSE 82; RESP 18; TEMP 98.2; O2SAT 93
[2017-03-09 05:55] LABS: AUTOMATED NEUTROPHIL # 5.9 TH/MM3 (1.8-7.7); BASOPHIL % 0.1 % (0.0-2.0); EOSINOPHIL % 0.1 % (0.0-4.0); HEMATOCRIT 34.4 % (35.0-46.0); HEMO FLAGS DIFF FINAL; LYMPH % 18.8 % (9.0-44.0); LYMPHOCYTE # 1.5 TH/MM3 (1.0-4.8); MEAN CELL VOLUME 92.7 FL (80.0-100.0); MEAN CORPUSCULAR HEMOGLOBIN 31.6 PG (27.0-34.0); MEAN CORPUSCULAR HGB CONC 34.1 % (32.0-36.0); MONO % 7.7 % (0.0-8.0); NEUT % 73.3 % (16.0-70.0); PLATELET COUNT 156 TH/MM3 (150-450); RED BLOOD COUNT 3.71 MIL/MM3 (4.00-5.30); RED CELL DISTRIBUTION WIDTH 13.4 % (11.6-17.2)
[2017-03-09] MEDS ORDERED: LEVOTHYROXINE SODIUM 25 MCG TAB PO SCH (06:00)
[2017-03-09 06:17] LABS: BICARBONATE 26.3 MEQ/L (21.0-32.0)
[2017-03-09 06:23] LABS: INDIRECT BILIRUBIN 0.6 MG/DL (0.0-0.8); TOTAL BILIRUBIN ADULT 0.8 MG/DL (0.2-1.0)
[2017-03-09] MEDS: ACETAMINOPHEN/HYDROcodone 325 MG/5 MG TAB PO PRN (07:02)
[2017-03-09 08:00] VITALS: BP 114/68; PULSE 68; RESP 17; TEMP 98.4; O2SAT 94
[2017-03-09] MEDS: SODIUM CHLORIDE 0.9% FLUSH 10 ML FLUSH IV FLUSH SCH (08:43)
[2017-03-09] MEDS: LACTATED RINGER'S 1000 ML INJ 1,000 ML IV SCH (08:45)
[2017-03-09] MEDS ORDERED: PANTOPRAZOLE SOD 20 MG DELAYED RELEASE TAB PO SCH (09:00)
[2017-03-09] MEDS ORDERED: LISINOPRIL 20 MG TAB PO SCH (09:00)
[2017-03-09] MEDS ORDERED: PRAVASTATIN SOD 40 MG TAB PO SCH (09:00)
[2017-03-09] MEDS ORDERED: ASPIRIN 81 MG CHEW TAB CHEW SCH (09:00)
[2017-03-09 12:00] VITALS: BP 114/67; PULSE 80; RESP 17; TEMP 98.7; O2SAT 91
--- NOTE | 2017-03-09 13:26 | HHI.DS ---
Discharge Summary Admission Date Mar 08, 2017 at 13:25 Discharge Date: Mar 09, 2017 Admitting Diagnosis (1) Chronic cholecystitis ICD Codes: K81.1 - Chronic cholecystitis (2) Cholelithiasis ICD Codes: K80.20 - Calculus of gallbladder without cholecystitis without obstruction Status: Acute Brief History 81 yo F scheduled for elective cholecytectomy due to h/o biliary colic. CBC/BMP: 03/09/17 0454 03/09/17 0454 Significant Findings Laboratory Tests Test 03/09/17 04:54 Red Blood Count 3.71 MIL/MM3 (4.00-5.30) Hematocrit 34.4 % (35.0-46.0) Neutrophils (%) (Auto) 73.3 % (16.0-70.0) Total Protein 5.8 GM/DL (6.4-8.2) Albumin 2.9 GM/DL (3.4-5.0) Calcium Level 8.2 MG/DL (8.5-10.1) Aspartate Amino Transf (AST/SGOT) 60 U/L (15-37) Estimat Glomerular Filtration Rate 59 ML/MIN (>89) PE at Discharge NAD Abd: soft, inc c/d/i, KEVEN ss output Hospital Course SHe was admitted for observation overnight due to prolonged surgery and difficult anatomy. Labs are basically normal. KEVEN is ss and not bilious. She has tolerated diet and ambulated. Pt Condition on Discharge: Good Discharge Disposition: Discharge Home Discharge Instructions DIET: Follow Instructions for: Heart Healthy Diet Activities you can perform: See Additionl Instruction Other Activity Instructions: Ok to shower tomorrow. No driving while on narcotics. Follow up Referrals: Surgical - 2 Weeks with Edwin Belcher MD Continued Medications: Aspirin (Aspirin) 81 Mg Chew 81 MG CHEW DAILY, TAB 0 Refills Carboxymethylcellulose Sodium (Lubricant Eye Drops) 1 Each Droperette 1 DROP EACH EYE DIRECTED Fish Oil-Cholecalciferol ([place]-3 Fish Oil/Vitamin) 1,000-1,000 Mg Cap 1 CAP PO DAILY for Nutritional Supplement, CAP 0 Refills Furosemide (Furosemide) 20 Mg Tab 20 MG PO DAILY, #30 TAB 0 Refills Levothyroxine (Levothyroxine) 25 Mcg Tab 25 MCG PO DAILY for Thyroid, #30 TAB 0 Refills Lisinopril (Lisinopril) 40 Mg Tab 40 MG PO DAILY for Blood Pressure Management, #30 TAB 0 Refills Multiple Vitamin (Multiple Vitamin) 1 Tab 1 TAB PO DAILY for Nutritional Supplement, TAB 0 Refills Multiple Vitamins W/ Minerals (Preservision-Lutein) 1 Cap 1 CAP PO BID for Nutritional Supplement, CAP 0 Refills Omeprazole (Omeprazole) 10 Mg Cap 10 MG PO DAILY, #30 CAP 0 Refills Potassium Chloride ER (Potassium Chloride ER) 8 Meq Tab 8 MEQ PO DAILY for Electrolyte Replacement, #30 TAB 0 Refills Simvastatin (Simvastatin) 20 Mg Tab 20 MG PO DAILY for Cholesterol Management, #30 TAB 0 Refills Temazepam (Temazepam) 30 Mg Cap 30 MG PO HS PRN for INSOMNIA, #30 CAP 0 Refills Edwin Belcher MD Mar 09, 2017 13:26
== END 2017-03-09 16:24 | disposition home or self-care (01) ==
LOC: HSDC 07:53 → HSDI 13:25 → N07B 18:03
PROVIDERS: ADMIT Surgery; ATTEND Surgery
DX: K80.10 Calculus of gallbladder with chronic cholecystitis without obstruction (principal); Z01.818 Encounter for other preprocedural examination
CPT/HCPCS: 00790; 47562; 80048; 80076; 85025; 88304; 94150; 96360; 96361; G0378; J0131; J0690; J1885; J2270; J2370; J2405; J2710; J3010; J7120; Q9967